=== PATIENT | male | born 1950 | race Two or more races ===

== ENCOUNTER 2023-02-13 11:15 | Emergency (ER) | payer OTHER ==
[~2023-02-13] VITALS: Ht 175.3 cm; Wt 77.1 kg
[2023-02-13] MEDS ORDERED: COZAAR25 MG PO (11:32)
[2023-02-13] MEDS ORDERED: CLONAZEPAM2 MG PO (11:32)
[2023-02-13] MEDS ORDERED: SEROQUEL50 MG PO (11:32)
[2023-02-13 12:46] LABS: URINE APPEARANCE Clear; URINE BILIRRUBIN Negative (NEGATIVE); URINE BLOOD Negative; URINE COLOR Yellow; URINE GLUCOSE Negative (NEGATIVE); URINE LEUKOCYTE Negative; URINE NITRATE Negative; URINE PROTEIN Negative (NEGATIVE); URINE UROBILINOGEN 0.2 E.U./dl
[2023-02-13 12:53] LABS: URINE BACTERIA 3.7 uL (0.0-1933); URINE EPITHELIAL CELLS 0.7 uL (0.0-38.8); URINE WBC 0.7 uL (0.0-23.2)
[2023-02-13 13:10] LABS: HEMOGLOBIN 14.3 g/dL (13-16.00); MEAN CORPUSCULAR HGB CONC 34.1 g/dl (32.0-36.0); PLATELET COUNT 321 K/uL (150-450); RED BLOOD COUNT 4.61 M/uL (4.00-6.00); RED CELL DISTRIBUTION WIDTH 13.5 % (11.5-14.5)
[2023-02-13 14:24] LABS: ALBUMIN 4.3 gm/dL (3.4-5.0); BILIRUBIN TOTAL 0.59 mg/dL (0.3-1.2); CALCIUM 9.6 mg/dL (8.5-10.1); CREATININE SERUM 1.04 mg/dL (0.70-1.30); GFR 70.4; GLOBULINA 3.3 G/DL (2.4-3.5); POTASSIUM 4.52 mEq/L (3.5-5.1); TOTAL PROTEIN 7.6 gm/dL (6.4-8.2)
== END 2023-02-13 16:19 | disposition home or self-care (01) ==
LOC: ER 11:16 → EDBD 11:16 → ER 12:31
PROVIDERS: Emergency Medicine
DX: R42 Dizziness and giddiness (principal); F32.89 Other specified depressive episodes; I10 Essential (primary) hypertension
CPT/HCPCS: 36415; 93005; 96365; 96366; 99284; J7030